=== PATIENT | male | born 1980 | race Asian ===

== ENCOUNTER 2021-07-17 16:50 | Emergency (ER) | payer MEDICAID ==
[~2021-07-17] VITALS: Ht 170.2 cm; Wt 59.0 kg
[2021-07-17 17:10] VITALS: BP 142/100
== END 2021-07-17 17:53 | disposition home or self-care (01) ==
LOC: ER 16:51
DX: R07.9 Chest pain, unspecified (principal); Z02.89 Encounter for other administrative examinations
CPT/HCPCS: 71045; 74018; 99284